=== PATIENT | male | born 1950 | race Caucasian/White ===

== ENCOUNTER 2023-07-26 14:59 | Outpatient (AMB) | payer OTHER, SELFPAY ==
--- NOTE | 2023-07-26 15:16 | MHC.PC.OV ---
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 Accompanied by: Step Child Allergies No Known Allergies Allergy (Verified 07/26/23 15:21) Tobacco use date assessed: 07/26/23 Fall risk assessment: No Falls in past year Last assessed Fall Risk: 07/26/23 Dental Screening Dental Screen Date: 07/26/23 Did you have a dental visit in the last 12 months?: No Did you have a dental problem in the last 6 months where you did not have access to dental care?: No Was dental information given to patient?: Patient has dentist HPI Claims Specialist Chronic Care Follow Up ( DM, Blood Pressure ) HPI Details New patient Prior PCP:? [facility] in [place] Last office visit/CPE: 2016 Acute issue(s): numbness b/l feet. No med for his DM since 2018 A1c today 5.2%. PMHx: DM, L ankle fracture. SurgHx: Teeth Extractions FHx: Mom: COPD, High BS. Dad: Dementia. SocHx: Smokes 1/2 ppd. Started smoking age 21. EtOH 4 times a week; No drugs PFSH Medical History (Updated 07/26/23 @ 16:16 by Percy Davis) High blood pressure Diabetes Surgical History (Updated 07/26/23 @ 15:25 by Ninfa Posada CMA) No pertinent past surgical history Family History (Updated 07/26/23 @ 15:27 by Ninfa Posada CMA) Mother COPD (chronic obstructive pulmonary disease) Cardiovascular disease Father Dementia Sister Mini stroke Social History (Updated 07/26/23 @ 15:32 by Ninfa Posada CMA) Household Members: Friend(s) Housing: House Housing Other:: Patient rents room from a friend. Are you a primary career placement specialist to a significant other at home: No Do you presently have visiting nurse or other home services: No 75 years or older and lives alone: No Alcohol intake: current Comment: 4 times Patient Tobacco Use Status: Current everyday Tobacco user Tobacco use type: Cigar Cigarettes Per Day: 10 e-Cigarette/Vaping Use: Currently Using Substance Use Type: Marijuana Special luc needs: No service: No Current occupational status: retired Cognitive needs: No Hearing needs: No Vision needs: No Questionnaire PHQ-9 Over the last 2 weeks, how often have you been bothered by any of the following problems? 1. Little interest or pleasure in doing things: several days 2. Feeling down, depressed, or hopeless: not at all 3. Trouble falling or staying asleep, or sleeping too much: not at all 4. Feeling tired or having little energy: several days 5. Poor appetite or overeating: not at all 6. Feeling bad about yourself - or that you are a failure or have let yourself or your family down: not at all 7. Trouble concentrating on things, such as reading the newspaper or watching television: not at all 8. Moving or speaking so slowly that other people could have noticed. Or the opposite - being so fidgety or restless that you have been moving around a lot more than usual: not at all 9. Thoughts that you would be better off or of hurting yourself in some way: not at all Total score: 2 Depression Screening Interpretation: Negative Depression Screening Done: Yes Source: Developed by Drs. Marty Garrison, Pati Duckworth, Chema Devi and colleagues, with an educational yvonne from [employer]. Thrive Questionnaire Date Thrive assessed: 07/26/23 I am a: Patient What is your living situation today?: I have a steady place to live Within the past 12 months, did the food you bought not last and you didn't have the money to get more?: Never true Within the past 12 months, did you worry whether your food would run out before you got money to buy more?: Never true Do you have trouble paying for medicines?: No Do you have trouble getting transportation to medical appointments?: No Do you have trouble paying your heating and electricity bill?: No Do you have trouble taking care of your child, family member or friend?: No Do you have trouble with day-to-day activities such as bathing, preparing meals, shopping, managing finances, etc.?: No Are you currently unemployed and looking for a job?: No Are you interested in more education?: No THRIVE Score: 0 AUDIT C Alcohol Use Questionnaire (AUDIT-C) 1. How often do you have a drink containing alcohol?: 4 or more times a week 2. How many drinks containing alcohol do you have on a typical day when you are drinking?: 5 or 6 3. How often do you have six or more drinks on one occasion?: Monthly Total Score: 8 STACEY-7 AMB Questionnaire STACEY-7 Date STACEY - 7 assessed: 07/26/23 Feeling nervous, anxious, or on edge: 0 = Not at all Not being able to stop or control worryin = Not at all Worrying too much about different things: 0 = Not at all Trouble relaxin = Not at all Being so restless that it is hard to sit still: 0 = Not at all Becoming easily annoyed or irritable: 0 = Not at all Feeling afraid as if something awful might happen: 0 = Not at all Total STACEY-7 score (0-4 normal; 5-9 mild; 10-14 moderate; 15-21 severe): 0 Source: Developed by Drs. Marty Garrison, Pati Duckworth, Chema Devi and colleagues, with an educational yvonne from [employer]. Review of Systems Const Denies chills, Denies fatigue, Denies fever(s), Denies headache(s) and Denies weakness ENT Denies dizziness and Denies headache(s) Card Denies chest pain, Denies lightheadedness, Denies dyspnea and Denies other (Palpitations) Resp Denies cough, Denies dyspnea, Denies wheezing and Denies other ( shortness of breath) Musc Denies numbness and Denies tingling Neuro Denies dizziness, Denies headache(s), Denies numbness, Denies tingling, Denies paresthesias and Denies weakness Psych Denies anxiety and Denies depression Endo Denies fatigue Aller/Immun Denies wheezing Physical exam (Primary Care) Vital Signs: Last Vital Signs Pulse 63 07/26/23 15:17 BP 142/84 H 07/26/23 15:17 Pulse Ox 98 07/26/23 15:17 Oxygen Delivery Method Room Air 07/26/23 15:17 BMI result Body Mass Index 37.7 Tobacco/Smoking Status: Tobacco use Status Tobacco use date assessed 07/26/23 07/26/23 15:34 Patient Tobacco Use Status Current everyday Tobacco 07/26/23 15:34 Tobacco use type Cigar 07/26/23 15:34 e-Cigarette/Vaping Use Currently Using 07/26/23 15:34 PHQ-9: PHQ-9 Score PHQ-9: Total score 2 07/26/23 15:42 Depression Screening Interpretation: Negative Thrive Assessment: Date of Thrive Assessment Date Thrive assessed 07/26/23 07/26/23 15:41 Const General: no acute distress and well developed Nutritional Appearance: well nourished Orientation/consciousness: patient oriented x3 HENMT Head: Yes normocephalic and Yes atraumatic Eyes General: appearance normal, both eyes and all related structures Pupils: Equal, round and reactive pupils present EOM: EOMs intact bilaterally Resp Effort & Inspection: normal respiratory effort Auscultation: clear to auscultation bilaterally Cardio Rate: regular rate Rhythm: regular rhythm Heart sounds: S1 normal heart sound present, S2 normal heart sound present, no gallops, no murmurs and no rubs Neuro General: patient oriented x3 and gait normal Cranial nerves: Yes Equal, round and reactive pupils present Extrem Other: Decreased sensation bilateral lower extremities Psych Affect: normal affect Results AMB Hemoglobin A1c AMB Hemoglobin A1c 5.2 % Last Edit by Ninfa Posada CMA on 07/26/23 15:54 Assessment and Plan Assessment & Plan (1) Elevated blood pressure reading without diagnosis of hypertension: Code(s): R03.0 - Elevated blood-pressure reading, without diagnosis of hypertension Plan: Blood?pressure?elevated?today. He?denies?having?ever?been?treated?for?hypertension. We?discussed?that?if?blood?pressures?are?consistently?elevated?we?will?want?to?use?medication?to?control?this Meantime,?encouraged?salt/sodium?reduction?and?weight?loss?and?exercise. (2) Diabetes: Code(s): E11.9 - Type 2 diabetes mellitus without complications Plan: History?of?diabetes?but?his?A1c?is?5.2%?which?is?in?normal?range. Will?continue?to?follow Encouraged?diet,?exercise?and?weight?loss (3) Paresthesia of lower extremity: Code(s): R20.2 - Paresthesia of skin Plan: Significant?paresthesia?and?and?numbness?of?bilateral?feet He?notes?that?this?is?symmetrical?and?has?now?started?in?his?fingers?as?well History?of?diabetes?but?he?notes?that?his?A1cs?have?been?under?6?on?metformin?in?the?past?and?A1c?today?is?5.2%. Will?check?fasting?blood?sugars?well Of?note,?patient?drinks?multiple?alcoholic?drinks?about?4?times?per?week?and?this?may?also?impact?nerve?function. Checking?labs?including?B12,?iron?and?ferritin, thyroid?function He?can?try?some?gabapentin?and?B12?for?now. Will?follow-up?on?lab?work?and?if?no?other?cause?is?found,?will?refer?to?Neurology. Of?note,?patient?did?have?a?right?hand?pill?rolling?tremor?and?he?mentioned?that?his?father?had?dementia,??so?he?might?also?have a?neurodegenerative?process?like?Parkinson's. (4) History of smoking: Code(s): Z87.891 - Personal history of nicotine dependence Plan: He?is?only?smoking?half?a?pack?per?day?now?and?I?encouraged?weaning?and?cessation. Offered?low-dose?CT?scan? - will?order?and?he?will?check?to?see?that?his?insurance?will?cover?this. (5) Numbness of lower extremity: Code(s): R20.0 - Anesthesia of skin Plan: As?above,?patient?has?numbness?of?bilateral?feet?and?ankle?and?has?begun?with?bilateral?fingers?as?well. Checking?labs If?no?clear?cause,?will?refer?to?Neurology (6) Laboratory exam ordered as part of routine general medical examination: Code(s): Z00.00 - Encounter for general adult medical examination without abnormal findings Plan: Check?lab Orders: Orders Complete Blood Count Auto Diff Today Z00.00 - Encounter for general adult medical examination without abnormal findings Prostate Specific Antigen Scr Today Z12.5 - Encounter for screening for malignant neoplasm of prostate Microalbumin, Random (w Creat) Today I10 - Essential (primary) hypertension TSH reflex Free T4 Today Z00.00 - Encounter for general adult medical examination without abnormal findings Vitamin B12 and Folate Today E53.8 - Deficiency of other specified B group vitamins, R20.2 - Paresthesia of skin Ferritin Today R20.2 - Paresthesia of skin AMB Hemoglobin A1c Today Z13.9 - Encounter for screening, unspecified Comprehensive [place]. Panel Fast Today Z00.00 - Encounter for general adult medical examination without abnormal findings Lipid Panel Today Z00.00 - Encounter for general adult medical examination without abnormal findings UA and rflx microscopic Today Z00.00 - Encounter for general adult medical examination without abnormal findings Vitamin B6 Today R20.2 - Paresthesia of skin Magnesium Today R20.2 - Paresthesia of skin IRON PROFILE Today R20.2 - Paresthesia of skin Medications: New gabapentin 300 mg PO BID 30 days 60 caps 2RF mecobalamin (vitamin B12) 1,000 mcg PO DAILY 30 days 30 tabs 3RF Coding Level of Care Code Est Pt Level 3 (06598) Diagnoses Elevated blood pressure reading without diagnosis of hypertension R03.0 Diabetes E11.9 Paresthesia of lower extremity R20.2 History of smoking Z87.891 Numbness of lower extremity R20.0 Laboratory exam ordered as part of routine general medical examination Z00.00
[2023-07-26 15:17] VITALS: BP 142/84; PULSE 63; O2SAT 98; BMI 37.7
== END 2023-07-26 16:14 | disposition home or self-care (01) ==
PROVIDERS: PCP Family Medicine; Visit Provider Family Medicine
DX: R03.0 Elevated blood-pressure reading, without diagnosis of hypertension (principal); E11.9 Type 2 diabetes mellitus without complications; R20.2 Paresthesia of skin; Z87.891 Personal history of nicotine dependence; R20.0 Anesthesia of skin
CPT/HCPCS: 83036; 99213

== ENCOUNTER 2023-11-29 13:44 | Outpatient (AMB) | payer OTHER, SELFPAY ==
[2023-11-29 13:54] VITALS: BP 132/80; PULSE 60; O2SAT 97; BMI 35.4
--- NOTE | 2023-11-29 13:54 | A.OFFPC_ITS ---
Vital Signs 11/29/23 13:54 Height 5 ft 11 in Weight 254 lb BMI 35.4 BP 132/80 Blood Pressure Location Lt brachial Position Sitting Pulse 60 Pulse Source Pulse Oximeter Pulse Oximetry (%) 97 Oxygen Delivery Method Room Air Intake Visit Reasons: Ext exam w/ f/u labs & health maint - see comment Intake Note: Patient is here for extended exam, but was not able to get his blood work done. Patient would like his meds refilled today. Allergies pollen extracts Allergy (Mild, Verified 11/29/23 14:01) Nasal congestion Medication List - Last Reconciled 11/29/23 by Clint Pedraza MD gabapentin 300 mg PO BID 30 days mecobalamin (vitamin B12) 1,000 mcg PO DAILY 30 days Tobacco use date assessed: 07/26/23 Fall risk assessment: 1 Fall in past year Last assessed Fall Risk: 11/29/23 Dental Screening Dental Screen Date: 07/26/23 HPI Ext exam w/ f/u labs & health maint - see comment HPI Details Patient?presents?for?an?extended?exam?with?follow- up?labs?and?health?maintenance A hospital admission in July to August for left femur fracture and left ulnar fracture. No recent labs to review. Pt has complaints of tremors of his hands and feet. He notes tremors of his feet worse than his hands. He is on gabapentin 300mg which he states helps. He notes he has never had a colonoscopy. Has had a cologuard test before. [facility] Medical History High blood pressure Diabetes Surgical History No pertinent past surgical history Family History (Updated 11/29/23 @ 14:12 by Ninfa Posada CMA) Mother COPD (chronic obstructive pulmonary disease) Cardiovascular disease Father Dementia Mental health disorder Sister Mini stroke Social History Household Members: Friend(s) Housing: House Housing Other:: Patient rents room from a friend. Are you a primary career services officer to a significant other at home: No Do you presently have visiting nurse or other home services: No 75 years or older and lives alone: No Alcohol intake: current Comment: 4 times Patient Tobacco Use Status: Current everyday Tobacco user Tobacco use type: Cigar Cigarettes Per Day: 10 e-Cigarette/Vaping Use: Currently Using Substance Use Type: Marijuana Special luc needs: No service: No Current occupational status: retired Cognitive needs: No Hearing needs: No Vision needs: No Questionnaire Thrive Questionnaire Date Thrive assessed: 07/26/23 STACEY-7 AMB Questionnaire STACEY-7 Date STACEY - 7 assessed: 07/26/23 Source: Developed by Drs. Marty Garrison, Pati Duckworth, Chema Devi and colleagues, with an educational yvonne from [employer]. Review of Systems Const Denies chills, Denies fatigue, Denies fever(s), Denies headache(s) and Denies weakness Eyes Denies change in vision ENT Denies dizziness, Denies headache(s), Denies hearing loss, Denies nasal congestion, Denies sinus pain, Denies sinus pressure and Denies sore throat Card Denies chest pain, Denies lightheadedness, Denies dyspnea and Denies other (palpitations) Resp Denies cough, Denies dyspnea and Denies wheezing GI Denies abdominal pain, Denies melena, Denies hematochezia, Denies change in bowel habits, Denies dyspepsia and Denies nausea Denies hematuria and Denies dysuria Musc Denies abnormal gait, Denies myalgias, Denies arthralgias, Denies numbness and Denies tingling Skin/Breast Denies rash, Denies unusual bruising and Denies wounds Neuro Denies abnormal gait, Denies dizziness, Denies headache(s), Denies memory loss, Denies numbness, Denies Sensory deficit (Neuro), Denies tingling, Reports tremor(s) and Denies weakness Psych Denies anxiety, Denies depression and Denies memory loss Endo Denies cold intolerance, Denies fatigue, Denies heat intolerance, Denies polydipsia and Denies polyuria Sebastian/Lymph Denies easy bleeding and Denies easy bruising Aller/Immun Denies wheezing Physical exam (Primary Care) Vital Signs: Last Vital Signs Pulse 60 11/29/23 13:54 BP 132/80 11/29/23 13:54 Pulse Ox 97 11/29/23 13:54 Oxygen Delivery Method Room Air 11/29/23 13:54 BMI result Body Mass Index 35.4 Tobacco/Smoking Status: Tobacco use Status Tobacco use date assessed 07/26/23 11/29/23 13:56 Patient Tobacco Use Status Current everyday Tobacco 11/29/23 13:56 Tobacco use type Cigar 11/29/23 13:56 e-Cigarette/Vaping Use Currently Using 11/29/23 13:56 Thrive Assessment: Date of Thrive Assessment Date Thrive assessed 07/26/23 11/29/23 13:56 Const General: no acute distress, well developed, alert and awake Nutritional Appearance: well nourished Orientation/consciousness: patient oriented x3 HENMT Head: Yes normocephalic and Yes atraumatic Ears: hearing grossly normal bilaterally and TM's normal bilaterally General nose exam: Normal external nose present and Normal nares present Mouth: Normal oral and palatal mucosa present and moist mucous membranes Teeth and gingiva: dentition normal Throat: Yes posterior oropharynx normal Eyes General: appearance normal, both eyes and all related structures Pupils: Equal, round and reactive pupils present and Pupil accommodation reflex normal EOM: EOMs intact bilaterally Neck Neck: Yes normal visual inspection, Yes no lymphadenopathy and Yes trachea midline Thyroid: Thyroid normal Carotids: no bruits Lymphatic: no lymphadenopathy noted Chest Chest palpation & inspection: normal inspection of the chest Resp Effort & Inspection: normal respiratory effort Auscultation: clear to auscultation bilaterally Cardio Rate: regular rate Rhythm: regular rhythm Heart sounds: S1 normal heart sound present, S2 normal heart sound present, no gallops, no murmurs and no rubs Bruits: no abdominal aortic bruits and no carotid bruits GI Palpation (GI): No Abdominal aortic bruit present, Soft to palpation, nontender, No hepatosplenomegaly present and No Rebound tenderness present Auscultation: normal bowel sounds General: Yes no CVA tenderness Back/Spine/Pelvis Back: no CVA tenderness Cervical Spine: cervical ROM normal and No Cervical spine tenderness Thoracic/Lumbar Spine: thoraco-lumbar ROM normal, No pain with thoraco-lumbar ROM, No thoracic spinal tenderness and No lumbar spinal tenderness Skin Lesions: no lesions Rashes: no rashes Trauma: no lacerations or abrasions Wounds: no wounds Nails: normal Neuro General: patient oriented x3 Cranial nerves: Yes Equal, round and reactive pupils present Cognition (Neuro): normal cognition Gait exam (Neuro): Normal gait present Motor exam (neuro): 5/5 motor strength present throughout Sensory Exam: No Sensory deficit (Neuro) Deep tendon reflexes (DTR's): Right patellar reflex intensity grade: 2+ and Left patellar reflex intensity grade: 2+ Extrem General: Yes normal to inspection and No edema Psych Appearance: grossly normal Affect: normal affect Attitude: cooperative Thought process: Normal thought process present Assessment and Plan Assessment & Plan (1) Status post fall: Code(s): Z91.81 - History of falling Plan: S/p?fall?and?fracture?of?ulna?and?femur Now?healed?and?patient?is?walking?with?limp?using?arm?normally. Patient?walked?over?a?mile just?this?weekend. Concerned?that?this?is?likely?secondary?to?some?alcohol?and?missing?some?stairs? when?walking?down?steps. Patient?denies?this Encouraged?moderation?will?drink (2) High blood pressure: Code(s): I10 - Essential (primary) hypertension Plan: Blood?pressure?is?controlled.??Goal?is?less?than?140/90 (3) Screening for colon cancer: Code(s): Z12.11 - Encounter for screening for malignant neoplasm of colon Plan: Patient?agrees?to?Cologuard?test Ordered (4) Tremor: Code(s): R25.1 - Tremor, unspecified Plan: Tremor?and?this?may?be?secondary?to?alcohol?use Had?discussed?referral?to?neurology?with?patient?but?he?says?he?would?not?have?a ?way?to?get?to?the?appointment. Will?monitor (5) Screening for prostate cancer: Code(s): Z12.5 - Encounter for screening for malignant neoplasm of prostate Plan: Check?PSA (6) Adult general medical exam: Code(s): Z00.00 - Encounter for general adult medical examination without abnormal findings Plan: 73-year-old?male?presents?for?extended?exam Orders: Referrals Cologuard Test Z12.11 - Encounter for screening for malignant neoplasm of colon, Z12.12 - Encounter for screening for malignant neoplasm of rectum Medications: New folic acid 0.4 mg PO DAILY 90 days 90 tabs 3RF thiamine HCl (vitamin B1) 500 mg PO DAILY 90 days 90 tabs 3RF Coding Level of Care Code Est Pt Level 4 (61458) Diagnoses Status post fall Z91.81 High blood pressure I10 Screening for colon cancer Z12.11 Tremor R25.1 Screening for prostate cancer Z12.5 Adult general medical exam Z00.00
== END 2023-11-29 16:07 | disposition home or self-care (01) ==
PROVIDERS: PCP Family Medicine; Visit Provider Family Medicine
DX: I10 Essential (primary) hypertension (principal); R25.1 Tremor, unspecified; Z91.81 History of falling; Z12.11 Encounter for screening for malignant neoplasm of colon; Z12.5 Encounter for screening for malignant neoplasm of prostate
CPT/HCPCS: 99214

== ENCOUNTER 2024-01-31 10:58 | Outpatient (AMB) | payer OTHER, SELFPAY ==
--- NOTE | 2024-01-31 11:02 | A.OFFPC_ITS ---
Vital Signs 01/31/24 11:06 01/31/24 11:12 01/31/24 11:19 Height 5 ft 11 in Weight 261 lb 4 oz BMI 36.4 BP 140/78 H 150/70 H 140/78 H Blood Pressure Location Rt brachial Rt brachial Rt brachial Position Sitting Sitting Sitting Respiration 16 Pulse 78 Pulse Source Pulse Oximeter Temp 98 F Temp Source Tympanic Pulse Oximetry (%) 98 Oxygen Delivery Method Room Air Intake Visit Reasons: eye surgery Intake Note: pre op patient states they did not give him a pre op form Allergies pollen extracts Allergy (Mild, Verified 01/31/24 11:05) Nasal congestion Tobacco use date assessed: 07/26/23 Dental Screening Dental Screen Date: 07/26/23 HPI eye surgery HPI Details Patient presents for preoperative clearance prior to R cataract surgery Procedure: R ctaract Date:? 02/03/2024 Surgeon: Chaitanya Ruiz Anesthesia: Local Cardiac Hx: None Pulmonary Hx: None. Smokes 1 pack per week Prior Surgical Complications: None Prior Anesthesia Complications: None Coag issues: None Functional Matthews: Walks 1/2 mile per day PFSH Medical History High blood pressure Diabetes Surgical History No pertinent past surgical history Family History (Updated 11/29/23 @ 14:12 by Ninfa Posada CMA) Mother COPD (chronic obstructive pulmonary disease) Cardiovascular disease Father Dementia Mental health disorder Sister Mini stroke Social History Household Members: Friend(s) Housing: House Housing Other:: Patient rents room from a friend. Are you a primary healthcare market consultant to a significant other at home: No Do you presently have visiting nurse or other home services: No 75 years or older and lives alone: No Alcohol intake: current Comment: 4 times Patient Tobacco Use Status: Current everyday Tobacco user Tobacco use type: Cigar Cigarettes Per Day: 10 e-Cigarette/Vaping Use: Currently Using Substance Use Type: Marijuana Special luc needs: No service: No Current occupational status: retired Cognitive needs: No Hearing needs: No Vision needs: No Questionnaire Thrive Questionnaire Date Thrive assessed: 07/26/23 STACEY-7 AMB Questionnaire STACEY-7 Date STACEY - 7 assessed: 07/26/23 Source: Developed by Drs. Marty Garrison, Pati Duckworth, Chema Devi and colleagues, with an educational yvonne from [employer]. Review of Systems Const Denies chills, Denies fatigue, Denies fever(s), Denies headache(s) and Denies weakness ENT Denies dizziness and Denies headache(s) Card Denies chest pain, Denies lightheadedness, Denies dyspnea and Denies other (Palpitations) Resp Denies cough, Denies dyspnea, Denies wheezing and Denies other ( shortness of breath) Musc Denies numbness and Denies tingling Neuro Denies dizziness, Denies headache(s), Denies numbness, Denies tingling, Denies paresthesias and Denies weakness Psych Denies anxiety and Denies depression Endo Denies fatigue Aller/Immun Denies wheezing Physical exam (Primary Care) Vital Signs: Last Vital Signs Temp 98 F 01/31/24 11:06 Pulse 78 01/31/24 11:06 Resp 16 01/31/24 11:06 BP 140/78 H 01/31/24 11:19 Pulse Ox 98 01/31/24 11:06 Oxygen Delivery Method Room Air 01/31/24 11:06 BMI result Body Mass Index 36.4 Tobacco/Smoking Status: Tobacco use Status Tobacco use date assessed 07/26/23 01/31/24 11:04 Patient Tobacco Use Status Current everyday Tobacco 01/31/24 11:04 Tobacco use type Cigar 01/31/24 11:04 e-Cigarette/Vaping Use Currently Using 01/31/24 11:04 Thrive Assessment: Date of Thrive Assessment Date Thrive assessed 07/26/23 01/31/24 11:04 Const General: no acute distress and well developed Nutritional Appearance: well nourished Orientation/consciousness: patient oriented x3 HENMT Head: Yes normocephalic and Yes atraumatic Eyes General: appearance normal, both eyes and all related structures Pupils: Equal, round and reactive pupils present EOM: EOMs intact bilaterally Resp Effort & Inspection: normal respiratory effort Auscultation: clear to auscultation bilaterally Cardio Rate: regular rate Rhythm: regular rhythm Heart sounds: S1 normal heart sound present, S2 normal heart sound present, no gallops, no murmurs and no rubs Neuro General: patient oriented x3 and gait normal Cranial nerves: Yes Equal, round and reactive pupils present Psych Affect: normal affect Assessment and Plan Assessment & Plan (1) Pre-operative clearance: Code(s): Z01.818 - Encounter for other preprocedural examination Plan: 73-year-old?male?presents?for?preoperative?clearance?prior?to?right?cataract?barnes rgery No?history?of?cardiac?or?pulmonary?disease. Cardiac?and?pulmonary?exams?today?are?within?normal?limits. Patient?does?smoke?about?1?pack?per?week?and?I?advised?cessation No?complications?with?prior?surgeries?or?anesthesia No?coagulopathies Good?functional?reserve Low?risk?patient?for?low?risk?procedure ?No?contraindications?to?proceeding?with?proposed?procedure Medications: Refilled folic acid 0.4 mg PO DAILY 90 days 90 tabs 3RF thiamine HCl (vitamin B1) 500 mg PO DAILY 90 days 90 tabs 3RF Coding Level of Care Code Est Pt Level 3 (73826) Diagnoses Pre-operative clearance Z01.818
[2024-01-31 11:06] VITALS: BP 140/78; PULSE 78; RESP 16; TEMP 36.6; O2SAT 98; BMI 36.4
[2024-01-31 11:12] VITALS: BP 150/70
[2024-01-31 11:19] VITALS: BP 140/78
== END 2024-01-31 11:44 | disposition home or self-care (01) ==
PROVIDERS: PCP Family Medicine; Visit Provider Family Medicine
DX: Z01.818 Encounter for other preprocedural examination (principal)
CPT/HCPCS: 99213

== ENCOUNTER 2024-09-18 08:47 | Outpatient (REF) | payer MEDICARE, SELFPAY ==
[2024-09-18 11:22] LABS: MANUAL DIFF FLAG NO
[2024-09-18 11:29] LABS: Basophils Absolute Auto 0.1 X10*3/uL (0.0-0.2); Eosinophils Absolute Auto 0.1 X10*3/uL (0.0-0.4); Eosinophils Percent Auto 1.8 % (0-4); Hematocrit 43.9 % (42.0-52.0); Hemoglobin 15.7 g/dl (14.0-18.0); Imm Gran Abs Auto 0.02 X10*3/uL (0.00-0.03); Imm Gran Pct Auto 0.3 % (0.0-0.4); Lymphocytes Absolute Auto 3.3 X10*3/uL (1.2-4.9); Lymphocytes Percent Auto 45.3 % (20-40); Mean Corpuscular HGB Conc 35.8 g/dl (31.0-36.0); Mean Corpuscular Hemoglobin 32.7 pg (27.0-33.0); Mean Corpuscular Volume 91.5 fL (80.0-98.0); Mean Platelet Volume 10.3 fL (9.4-12.4); Monocytes Absolute Auto 0.6 X10*3/uL (0.1-1.2); Monocytes Percent Auto 8.7 % (2-11); Neutrophils Absolute Auto 3.1 x10*3/uL (2.0-8.3); Neutrophils Percent Auto 42.9 % (45-73); Platelet Count 358 X10*3/uL (160-400); Red Cell Distribution Width 13.6 % (11.0-16.0); White Blood Count 7.3 X10*3/uL (4.8-10.8)
[2024-09-18 11:43] LABS: Magnesium 2.2 mg/dL (1.6-2.6)
[2024-09-18 14:31] LABS: Anion Gap 13 (12-20)
[2024-09-18 14:37] LABS: Alanine Aminotransferase 47 U/L (0-40); Albumin Level 3.6 g/dL (3.5-5.0); Alkaline Phosphatase 91 U/L (39-117); Aspartate Amino Transferase 46 U/L (5-37); Bilirubin Direct 0.6 mg/dL (0.0-0.5); Bilirubin Total 1.3 mg/dL (0.0-1.0); Blood Urea Nitrogen 13 mg/dL (9-16); Calcium 9.2 mg/dL (8.4-10.2); Carbon Dioxide 23 mmol/L (22-29); Chloride 106 mmol/L (96-108); Estimated Glomerular Filt Rate > 60; Glucose Random 119 mg/dL (60-115); Phosphorus 4.1 mg/dL (2.7-4.5); Sodium 138 mmol/L (135-145)
[2024-09-18 15:14] LABS: Total Protein 7.2 g/dL (6.5-8.0)
== END 2024-09-18 08:48 | disposition home or self-care (01) ==
LOC: HO.WFDLDS 08:47
PROVIDERS: Visit Provider Internal Medicine Cardiovascular Disease
DX: I50.20 Unspecified systolic (congestive) heart failure (principal)
CPT/HCPCS: 36415; 80048; 80076; 83735; 84100; 85025

== ENCOUNTER 2024-09-21 11:09 | Outpatient (AMB) | payer MEDICARE, SELFPAY ==
--- NOTE | 2024-09-21 11:15 | MHC.PC.OV ---
Vital Signs 09/21/24 11:28 Height 5 ft 11 in Weight 262 lb BMI 36.5 BP 120/68 Blood Pressure Location Lt brachial Position Sitting Pulse Source Pulse Oximeter Temp 97.4 F Temp Source Oral Pulse Oximetry (%) 98 Oxygen Delivery Method Room Air Intake Visit Reasons: Discharge Follow-Up [facility] Intake Note: patient is scheduled for tcm Pilates Instructor Required: No Allergies pollen extracts Allergy (Mild, Verified 09/21/24 11:25) Nasal congestion Medication List - Last Reconciled 09/21/24 by Clint Pedraza MD apixaban (Eliquis) 5 mg PO BID colchicine 0.6 mg PO DAILY dapagliflozin propanediol 10 mg PO DAILY folic acid 0.4 mg PO DAILY 90 days folic acid 1 mg PO DAILY furosemide 20 mg PO BID gabapentin 300 mg PO BID 30 days losartan 25 mg PO DAILY mecobalamin (vitamin B12) 1,000 mcg PO DAILY 30 days metoprolol succinate ER 50 mg PO DAILY spironolactone 25 mg PO DAILY thiamine HCl (vitamin B1) 500 mg PO DAILY 90 days thiamine HCl (vitamin B1) 100 mg PO BID Tobacco use date assessed: 07/26/23 Dental Screening Dental Screen Date: 07/26/23 HPI Discharge Follow-Up [facility]) HPI Details 74 y/o male presents for a discharge f/u [facility] Had presented with complaints of shortness of breath/dyspnea on exertion, orthopnea as well as LE edema. EKG with LBBB and new onset AFib with RVR. Was noted to be in fluid overload and chest imaging with small L sided pleural effusion as well as small pericardial effusion. Pt had an echocardiogram which revealed a low normal LVEF (40 to 45%), LVH, mild global hypokinesis, moderately dilated L atrium, mild to moderate pulmonary hypertension and small pericardial effusion. Was discharged on Eliquis 5mg, Farxiga, Lasix, spironolactone, losartan and toprol 50mg daily. Pt had still remained in AFib. Workup revealed pericarditis, CHF. TCM TCM Information Date of Discharge 08/10/24 Discharged From Other Interactive Contact Date (Reference documentation from this date) 09/21/24 [facility] Medical History High blood pressure Diabetes Surgical History No pertinent past surgical history Family History (Updated 11/29/23 @ 14:12 by Ninfa Posada CMA) Mother COPD (chronic obstructive pulmonary disease) Cardiovascular disease Father Dementia Mental health disorder Sister Mini stroke Social History Household Members: Friend(s) Housing: House Housing Other:: Patient rents room from a friend. Are you a primary before and after school daycare worker to a significant other at home: No Do you presently have visiting nurse or other home services: No 75 years or older and lives alone: No Alcohol intake: current Comment: 4 times Patient Tobacco Use Status: Current everyday Tobacco user Tobacco use type: Cigar Cigarettes Per Day: 10 e-Cigarette/Vaping Use: Currently Using Substance Use Type: Marijuana Special luc needs: No service: No Current occupational status: retired Cognitive needs: No Hearing needs: No Vision needs: No Questionnaire PHQ-9 Over the last 2 weeks, how often have you been bothered by any of the following problems? 1. Little interest or pleasure in doing things: not at all 2. Feeling down, depressed, or hopeless: not at all 3. Trouble falling or staying asleep, or sleeping too much: not at all 4. Feeling tired or having little energy: not at all 5. Poor appetite or overeating: not at all 6. Feeling bad about yourself - or that you are a failure or have let yourself or your family down: not at all 7. Trouble concentrating on things, such as reading the newspaper or watching television: not at all 8. Moving or speaking so slowly that other people could have noticed. Or the opposite - being so fidgety or restless that you have been moving around a lot more than usual: not at all 9. Thoughts that you would be better off or of hurting yourself in some way: not at all Total score: 0 Source: Developed by Drs. Marty Garrison, Pati Duckworth, Chema Devi and colleagues, with an educational yvonne from [employer]. Thrive Questionnaire Date Thrive assessed: 07/26/23 I am a: Patient What is your living situation today?: I have a steady place to live Within the past 12 months, did the food you bought not last and you didn't have the money to get more?: Never true Within the past 12 months, did you worry whether your food would run out before you got money to buy more?: Never true Do you have trouble paying for medicines?: Yes Do you have trouble getting transportation to medical appointments?: Yes Do you have trouble paying your heating and electricity bill?: No Do you have trouble taking care of your child, family member or friend?: No Do you have trouble with day-to-day activities such as bathing, preparing meals, shopping, managing finances, etc.?: No Are you currently unemployed and looking for a job?: No Are you interested in more education?: No Please select the resources that you would like help with: Transportation Currently or been in a relationship where the following occur: No concerns reported THRIVE Score: 1 AUDIT C Alcohol Use Questionnaire (AUDIT-C) 1. How often do you have a drink containing alcohol?: 2-3 times a week 2. How many drinks containing alcohol do you have on a typical day when you are drinking?: 3 or 4 3. How often do you have six or more drinks on one occasion?: Monthly Total Score: 6 STACEY-7 AMB Questionnaire STACEY-7 Date STACEY - 7 assessed: 07/26/23 Feeling nervous, anxious, or on edge: 0 = Not at all Not being able to stop or control worryin = Not at all Worrying too much about different things: 0 = Not at all Trouble relaxin = Not at all Being so restless that it is hard to sit still: 0 = Not at all Becoming easily annoyed or irritable: 0 = Not at all Feeling afraid as if something awful might happen: 0 = Not at all Total STCAEY-7 score (0-4 normal; 5-9 mild; 10-14 moderate; 15-21 severe): 0 Source: Developed by Drs. Marty Garrison, Pati Duckworth, Chema Devi and colleagues, with an educational yvonne from [employer]. Review of Systems Const Denies chills, Denies fatigue, Denies fever(s), Denies headache(s) and Denies weakness ENT Denies dizziness and Denies headache(s) Card Denies chest pain, Denies lightheadedness, Denies dyspnea and Denies other (Palpitations) Resp Denies cough, Denies dyspnea, Denies wheezing and Denies other ( shortness of breath) Musc Denies numbness and Denies tingling Neuro Denies dizziness, Denies headache(s), Denies numbness, Denies tingling, Denies paresthesias and Denies weakness Psych Denies anxiety and Denies depression Endo Denies fatigue Aller/Immun Denies wheezing Physical exam (Primary Care) Vital Signs: Last Vital Signs Temp 97.4 F 09/21/24 11:28 BP 120/68 09/21/24 11:28 Pulse Ox 98 09/21/24 11:28 Oxygen Delivery Method Room Air 09/21/24 11:28 BMI result Body Mass Index 36.5 Tobacco/Smoking Status: Tobacco use Status Tobacco use date assessed 07/26/23 09/21/24 11:18 Patient Tobacco Use Status Current everyday Tobacco 09/21/24 11:18 Tobacco use type Cigar 09/21/24 11:18 e-Cigarette/Vaping Use Currently Using 09/21/24 11:18 PHQ-9: PHQ-9 Score PHQ-9: Total score 0 09/21/24 11:31 Thrive Assessment: Date of Thrive Assessment Date Thrive assessed 07/26/23 09/21/24 11:18 Currently or been in a relationship where the following occur: No concerns reported Const General: no acute distress and well developed Nutritional Appearance: well nourished Orientation/consciousness: patient oriented x3 HENMT Head: Yes normocephalic and Yes atraumatic Eyes General: appearance normal, both eyes and all related structures Pupils: Equal, round and reactive pupils present EOM: EOMs intact bilaterally Resp Effort & Inspection: normal respiratory effort Auscultation: clear to auscultation bilaterally Cardio Rate: regular rate Rhythm: regular rhythm Heart sounds: S1 normal heart sound present, S2 normal heart sound present, no gallops, no murmurs and no rubs Neuro General: patient oriented x3 and gait normal Cranial nerves: Yes Equal, round and reactive pupils present Psych Affect: normal affect Coding Level of Care Code TCM High MDM <= 14 days Diagnoses Pericarditis I31.9 Afib I48.91 CHF (congestive heart failure) I50.9 SOB (shortness of breath) R06.02 Sleep apnea G47.30 COPD (chronic obstructive pulmonary disease) J44.9 Assessment & Plan Assessment & Plan (1) Pericarditis: Code(s): I31.9 - Disease of pericardium, unspecified Category: Medical (2) Afib: Code(s): I48.91 - Unspecified atrial fibrillation Category: Medical (3) CHF (congestive heart failure): Code(s): I50.9 - Heart failure, unspecified Category: Medical (4) SOB (shortness of breath): Code(s): R06.02 - Shortness of breath Category: Medical (5) Sleep apnea: Code(s): G47.30 - Sleep apnea, unspecified Category: Medical (6) COPD (chronic obstructive pulmonary disease): Code(s): J44.9 - Chronic obstructive pulmonary disease, unspecified Category: Medical Plan Hospital?discharge?follow-up?for?patient?who?presented?with?worsening?shortness?of?breath?and?orthopnea?as?well?as?some?chest?pressure. Workup?revealed?pericarditis,?atrial?fibrillation?and?congestive?heart?failure. He?was?given?colchicine?for?pericarditis.??He?is?on?Eliquis?as?well?as?Toprol?for?atrial?fibrillation?and?he?is?losartan?for?blood?pressure.??Is?also?on?furosemide?for?volume?overload/congestion. Patient?is?breathing?easily?today. He?is?still?in?an?irregularly?irregular?rhythm. Lungs?are?clear?to?auscultation?bilaterally He?was advised?to?make?a?follow-up?appointment?with?Dr. Langford. ?I?have?made?a?referral.? Continue?Eliquis,?Toprol,?losartan,?furosemide?and?colchicine. Will?likely?require?colchicine?3-6 mos. Patient?was?also?found?to?have?COPD?and?I?have?referred?him?to?Pulmonary?Medicine. Also?sleep?apnea?and?he?is?referred?to?Sleep?Medicine Lastly,?we?discussed?that alcohol?abuse?can?worsen?pericarditis and?atrial?fibrillation.??He?is?working?on?weaning. I?let?him?know?that?he?can?discuss?this?with?me?at?her?next?visit?if?he?wants?additional?help?with?weaning?and?cessation. Orders: Orders TSH reflex Free T4 Today R06.02 - Shortness of breath, Z00.00 - Encounter for general adult medical examination without abnormal findings Complete Blood Count Auto Diff Today R06.02 - Shortness of breath, Z00.00 - Encounter for general adult medical examination without abnormal findings B Type Natriuretic Peptide Today I50.9 - Heart failure, unspecified, R06.02 - Shortness of breath Comprehensive [place]. Panel Fast Today R06.02 - Shortness of breath, Z00.00 - Encounter for general adult medical examination without abnormal findings UA CC w/rflx Micro + Cult Today R06.02 - Shortness of breath, Z00.00 - Encounter for general adult medical examination without abnormal findings Referrals Sleep Medicine Referral G47.30 - Sleep apnea, unspecified Cardiology Referral I10 - Essential (primary) hypertension, I31.9 - Disease of pericardium, unspecified, I48.91 - Unspecified atrial fibrillation, I50.9 - Heart failure, unspecified Pulmonology Referral J44.9 - Chronic obstructive pulmonary disease, unspecified, R06.02 - Shortness of breath
[2024-09-21 11:28] VITALS: BP 120/68; TEMP 36.3; O2SAT 98; BMI 36.5
== END 2024-09-21 12:55 | disposition home or self-care (01) ==
LOC: HO.HMCFM 11:10
PROVIDERS: PCP Family Medicine; Visit Provider Family Medicine
DX: I48.91 Unspecified atrial fibrillation (principal); I50.9 Heart failure, unspecified; J44.9 Chronic obstructive pulmonary disease, unspecified; I31.9 Disease of pericardium, unspecified; R06.02 Shortness of breath; G47.30 Sleep apnea, unspecified

== ENCOUNTER → 2024-09-21 11:09 | Outpatient (BNVA) | payer MEDICARE, SELFPAY | PROVIDERS: PCP Family Medicine; Visit Provider Family Medicine | DX: I31.9 Disease of pericardium, unspecified (principal); I48.91 Unspecified atrial fibrillation; I50.9 Heart failure, unspecified; R06.02 Shortness of breath; G47.30 Sleep apnea, unspecified; J44.9 Chronic obstructive pulmonary disease, unspecified | CPT/HCPCS: 99212 ==

== ENCOUNTER 2024-11-29 10:27 | Outpatient (AMB) | payer MEDICARE, SELFPAY ==
[2024-11-29 10:28] VITALS: BP 134/80; PULSE 86; O2SAT 99; BMI 35.4
--- NOTE | 2024-11-29 10:28 | A.OFFVIS_ITS ---
Vital Signs 11/29/24 10:28 Height 5 ft 11 in Weight 253 lb 8 oz BMI 35.4 BP 134/80 Blood Pressure Location Rt brachial Position Sitting Pulse 86 Pulse Source Pulse Oximeter Pulse Oximetry (%) 99 Oxygen Delivery Method Room Air Intake Visit Reasons: COPD/Shortness of Breath Allergies pollen extracts Allergy (Mild, Verified 11/29/24 10:32) Nasal congestion HPI HPI COPD/Shortness of Breath: Details: Ricardo is a pleasant 74-year-old male, current minimal smoker with 30+ pack- year history, with underlying COPD, atrial fibrillation on Eliquis and congestive heart failure. He was referred by PCP for pulmonary evaluation for ongoing dyspnea. He was hospitalized in August under [facility] care, admitted due to new onset atrial fibrillation, CHF, early COPD signs and possible pulmonary hypertension. His inpatient period was marked by fluid retention, in addition to pericardial effusion and pleural effusion addressed through diuretics, now maintained on Lasix that led to notable weight loss. At this time he denies any respiratory symptoms and has been compliant with new cardiac medication regimen. He denies any orthopnea or bilateral lower extremity edema. He has since been evaluated by Cardiology 3 [facility] and will be transitioning his care to [facility], has upcoming appointment next month in addition to repeat echo to assess heart function as well as pulmonary pressures. Despite past indications of early COPD, he recollects the absence of any formal breathing test, such as pulmonary function testing. He denies frequent respiratory infections and has taken no respiratory medications in recent times, mentioning a recent prescription of albuterol MDI which he rarely uses. Denies prior history of asthma. He endorses mild seasonal allergies. He denies any occupational exposures. He reports mother, smoker, with history of COPD, otherwise denies any pertinent family history. Since his admission in October he has significantly minimized smoking, previously 3/4 of a pack per day now to a few cigarettes per day. [facility] Medical History High blood pressure Diabetes Surgical History No pertinent past surgical history Family History (Updated 11/29/23 @ 14:12 by Ninfa Posada CMA) Mother COPD (chronic obstructive pulmonary disease) Cardiovascular disease Father Dementia Mental health disorder Sister Mini stroke Social History (Updated 11/29/24 @ 10:32 by Svetlana Summers CMA) Household Members: Friend(s) Housing: House Housing Other:: Patient rents room from a friend. Are you a primary caregiver assisted living to a significant other at home: No Do you presently have visiting nurse or other home services: No 75 years or older and lives alone: No Alcohol intake: current Comment: 4 times Patient Tobacco Use Status: Current everyday Tobacco user Tobacco use type: Cigarette and Cigar Cigarettes Per Day: 2 e-Cigarette/Vaping Use: Currently Using Substance Use Type: Marijuana Special luc needs: No service: No Current occupational status: retired Cognitive needs: No Hearing needs: No Vision needs: No Review of Systems Const Denies chills, Denies excessive sweating, Denies fever(s), Denies headache(s) and Denies night sweats Eyes Denies dry eyes, Denies irritation and Denies itchy eyes ENT Reports Normal hearing present, Denies headache(s), Denies nasal congestion, Denies nasal discharge, Denies post nasal drip and Denies sore throat Card Denies chest pain, Denies chest pain at rest, Denies chest pain with activity, Denies claudication, Denies leg edema, Denies dyspnea, Denies dyspnea on exertion, Denies orthopnea and Denies paroxysmal nocturnal dyspnea Resp Denies chest congestion, Denies cough, Denies excessive phlegm production, Denies pain on inspiration, Denies pain with cough, Denies dyspnea, Denies dyspnea on exertion, Denies stridor and Denies wheezing Musc Denies myalgias Neuro Reports Normal hearing present and Denies headache(s) Endo Denies excessive sweating Sebastian/Lymph Denies lymphadenopathy Aller/Immun Denies itchy eyes, Denies seasonal rhinorrhea and Denies wheezing Physical Exam Vital Signs: Last Vital Signs Pulse 86 11/29/24 10:28 BP 134/80 11/29/24 10:28 Pulse Ox 99 11/29/24 10:28 Oxygen Delivery Method Room Air 11/29/24 10:28 BMI result Body Mass Index 35.4 Const General: cooperative, healthy appearing, comfortable, no acute distress, well developed and alert Nutritional Appearance: obese Orientation/consciousness: patient oriented x3 Limitations: no limitations HEENT Head: Yes normal to inspection, Yes normocephalic and Yes atraumatic Ears: hearing grossly normal bilaterally and external ears normal Eyes General: appearance normal, both eyes and all related structures Eyelids: Yes eyelids normal Sclerae: sclerae normal EOM: EOMs intact bilaterally Neck Neck: Yes normal visual inspection and Yes no lymphadenopathy Lymphatic: no lymphadenopathy noted Chest Chest palpation & inspection: normal inspection of the chest Resp Effort & Inspection: normal respiratory effort, able to speak in complete sentences, no audible wheezes, no cough, no stridor, not tachypneic, no tripod positioning and no use of accessory muscles Auscultation: diminished lung sounds Cardio Jugular venous distension: no JVD Rate: regular rate Rhythm: regular rhythm Skin Other: warm, dry General skin exam: no rashes or lesions noted Neuro General: patient oriented x3 Cranial nerves: Yes Normal hearing present Cognition (Neuro): normal cognition Gait exam (Neuro): Normal gait present Extrem General: Yes normal to inspection, Yes capillary refill normal, Yes no clubbing, cyanosis or edema and Yes no pedal edema Psych Appearance: grossly normal and well kempt Speech and movement: Normal speech and movement present and Clear speech present Affect: normal affect Attitude: cooperative Thought process: Normal thought process present Thought content: Normal thought content present Insight: Good insight present (Psych) Judgement: Good judgement present (Psych) Assessment & Plan Assessment & Plan (1) COPD (chronic obstructive pulmonary disease): Code(s): J44.9 - Chronic obstructive pulmonary disease, unspecified Category: Medical (2) Nicotine dependence, cigarettes, uncomplicated: Code(s): F17.210 - Nicotine dependence, cigarettes, uncomplicated Category: Medical Plan Ricardo presents for pulmonary evaluation for ongoing dyspnea, with prior history of COPD and continues to smoke. At this time he reports resolution of dyspnea after initiation of cardiac regimen however there may be a pulmonary contribution given smoking history. Will send for PFT to assess severity of obstructive defect. Discussed smoking cessation. Will also send for chest CT to assess for resolution of pleural effusions. We did discuss lung screening given smoking history however he would like to hold off at this time. He has upcoming echo scheduled through Cardiology and will be following up with the [facility] electric meter technician, will be reviewing repeat echo to assess pulmonary pressures as previously noted moderate pulmonary hypertension on echo from August 2024. All questions were answered and patient is in agreement of plan. Will follow-up to review results or sooner if needed. Orders: Orders PFT pulmonary function test Today J44.9 - Chronic obstructive pulmonary disease, unspecified CT chest wo IV con Today F17.210 - Nicotine dependence, cigarettes, uncomplicated, J90 - Pleural effusion, not elsewhere classified Coding Level of Care Code New Pt Level 4 (10169) Diagnoses COPD (chronic obstructive pulmonary disease) J44.9 Nicotine dependence, cigarettes, uncomplicated F17.210
== END 2024-11-29 11:02 | disposition home or self-care (01) ==
LOC: HO.HPSW 10:28
PROVIDERS: PCP Family Medicine; Referring Provider Family Medicine; Visit Provider Nurse Practitioner Family
DX: J44.9 Chronic obstructive pulmonary disease, unspecified (principal); F17.210 Nicotine dependence, cigarettes, uncomplicated
CPT/HCPCS: 99204

== ENCOUNTER → 2024-11-29 10:27 | Outpatient (BNVA) | payer MEDICARE, SELFPAY | PROVIDERS: PCP Family Medicine; Referring Provider Family Medicine; Visit Provider Nurse Practitioner Family | DX: J44.9 Chronic obstructive pulmonary disease, unspecified (principal); R06.00 Dyspnea, unspecified; F17.210 Nicotine dependence, cigarettes, uncomplicated | CPT/HCPCS: 99202 ==

== ENCOUNTER 2025-03-09 10:43 | Outpatient (AMB) | payer MEDICARE, SELFPAY ==
--- NOTE | 2025-03-09 10:50 | A.OFFPC_ITS ---
Vital Signs 03/09/25 10:52 Weight 263 lb 6 oz BP 114/66 Blood Pressure Location Rt brachial Position Sitting Respiration 16 Pulse 88 Pulse Source Pulse Oximeter Temp 97.6 F Pulse Oximetry (%) 97 Oxygen Delivery Method Room Air Intake Visit Reasons: Discharge f/u /acute on chronic CHF -rescheduled Intake Note: Hospital follow up. Currently wearing a heart monitor until 03/13/25 [employer] Consultant Required: No Allergies pollen extracts Allergy (Mild, Verified 03/09/25 10:52) Nasal congestion Tobacco use date assessed: 03/09/25 Fall risk assessment: 2 + Falls in past year Last assessed Fall Risk: 03/09/25 Dental Screening Dental Screen Date: 07/26/23 HPI Discharge f/u /acute on chronic CHF -rescheduled HPI Details Pt presents to f/u hospital visit. Patient went to the emergency department 02/26 after witnessed syncopal episode. At the ED he was noted to be hypotensive. Pro BNP was around 2000 and blood alcohol level was 109. He was given IV boluses of fluid with Levophed. Blood pressure improved and Levophed was discontinued and did not require further critical care management. He was admitted to [facility]. Patient had been sitting with his friends and became unresponsive. EMS was called and by the time they had arrived patient was awake and only mildly confused, briefly. Over the course of his hospital stay, he was given about 2 L of fluid. Lab work revealed JENSEN. His home Lasix, losartan and Aldactone were placed on hold. He did have a few episodes of AFib with RVR during physical activity such as going to the bathroom as well as a 3.2nd pause. His case was discussed with Cardiology, Dr. Langford. He was discharged on a monitor. Reports ongoing hearing loss, R ear. Has an appt. with surface mount technology operator Wednesday. HPI Comments History of Present Illness Details Documentation assistance for Clint Pedraza MD, was provided by Percy Davis, Underwater Photographer on 03/09/2025 at 11:49 AM DELMER. I, Dr. Pedraza, have read, observed, and verified documentation. [facility] Medical History High blood pressure Diabetes Surgical History No pertinent past surgical history Family History (Updated 11/29/23 @ 14:12 by Ninfa Posada CMA) Mother COPD (chronic obstructive pulmonary disease) Cardiovascular disease Father Dementia Mental health disorder Sister Mini stroke Social History (Updated 03/09/25 @ 10:56 by Lissette Muhammad CMA) Household Members: Friend(s) Housing: House Housing Other:: Patient rents room from a friend. Are you a primary career and technology education teacher to a significant other at home: No Do you presently have visiting nurse or other home services: No 75 years or older and lives alone: No Alcohol intake: former Year quit: 2024 Comment: 4 times Patient Tobacco Use Status: Former Tobacco user (quit 2 months ago) Tobacco use type: Cigarette and Cigar Cigarettes Per Day: 2 Years Smoked: 50 e-Cigarette/Vaping Use: Currently Using Substance Use Type: Former Substance User and Marijuana Special luc needs: No service: No Current occupational status: retired Cognitive needs: No Hearing needs: No Vision needs: No Questionnaire Thrive Questionnaire Date Thrive assessed: 09/21/24 I am a: Patient What is your living situation today?: I have a steady place to live Within the past 12 months, did the food you bought not last and you didn't have the money to get more?: Never true Within the past 12 months, did you worry whether your food would run out before you got money to buy more?: Never true Do you have trouble paying for medicines?: Yes Do you have trouble getting transportation to medical appointments?: Yes Do you have trouble paying your heating and electricity bill?: No Do you have trouble taking care of your child, family member or friend?: No Do you have trouble with day-to-day activities such as bathing, preparing meals, shopping, managing finances, etc.?: No Are you currently unemployed and looking for a job?: No Are you interested in more education?: No Please select the resources that you would like help with: Transportation Currently or been in a relationship where the following occur: No concerns reported THRIVE Score: 1 AUDIT C Alcohol Use Questionnaire (AUDIT-C) 1. How often do you have a drink containing alcohol?: Never (quit 02/26/2025) 3. How often do you have six or more drinks on one occasion?: Never Total Score: 0 STACEY-7 AMB Questionnaire STACEY-7 Date STACEY - 7 assessed: 07/26/23 Source: Developed by Drs. Marty Garrison, Pati Duckworth, Chema Devi and colleagues, with an educational yvonne from [employer]. Physical exam (Primary Care) Vital Signs: Last Vital Signs Temp 97.6 F 03/09/25 10:52 Pulse 88 03/09/25 10:52 Resp 16 03/09/25 10:52 BP 114/66 03/09/25 10:52 Pulse Ox 97 03/09/25 10:52 Oxygen Delivery Method Room Air 03/09/25 10:52 Tobacco/Smoking Status: Tobacco use Status Tobacco use date assessed 03/09/25 03/09/25 11:00 Patient Tobacco Use Status Former Tobacco user (quit 2 03/09/25 11:00 months ago) Tobacco use type Cigarette,Cigar 03/09/25 11:00 e-Cigarette/Vaping Use Currently Using 03/09/25 11:00 Thrive Assessment: Date of Thrive Assessment Date Thrive assessed 09/21/24 03/09/25 11:00 Currently or been in a relationship where the following occur: No concerns reported Coding Level of Care Code TCM High MDM <= 14 days Diagnoses Syncope R55 High blood pressure I10 CHF (congestive heart failure) I50.9 Afib I48.91 Hearing loss H91.90 Assessment & Plan Assessment & Plan (1) Syncope: Code(s): R55 - Syncope and collapse Category: Medical (2) High blood pressure: Code(s): I10 - Essential (primary) hypertension Category: Medical (3) CHF (congestive heart failure): Code(s): I50.9 - Heart failure, unspecified Category: Medical (4) Afib: Code(s): I48.91 - Unspecified atrial fibrillation Category: Medical (5) Hearing loss: Code(s): H91.90 - Unspecified hearing loss, unspecified ear Category: Medical Plan Patient went to the emergency department 9:15 after witnessed syncopal episode. At the ED he was noted to be hypotensive. Pro BNP was around 2000 and blood alcohol level was 109. He was given IV boluses of fluid with Levophed. Blood pressure improved and Levophed was discontinued and did not require further critical care management. He was admitted to [facility]. Patient had been sitting with his friends and became unresponsive. EMS was called and by the time they had arrived patient was awake and only mildly confused, briefly. Over the course of his hospital stay, he was given about 2 L of fluid. Lab work r evealed JENSEN. His home Lasix, losartan and Aldactone were placed on hold. He did have a few episodes of AFib with RVR during physical activity such as going to the bathroom as well as a 3.2nd pause. His case was discussed with Cardiology, Dr. Langford. He was discharged on a monitor. Should have close follow-up with Cardiology. Blood pressure 114/66 is good Will check renal function labs and electrolytes such as potassium and sodium Will check pro BNP Encouraged alcohol weaning and cessation - patient says he has already completely stopped since the hospital visit. Has follow-up with Dr. Langford - wearing Holter monitor currently and will review with import manager at that appointment. Not currently taking his spironolactone - blood pressure is good today. I did not restart this. He will discuss with Cardiology. Patient also has complaints of vertigo. Dizziness when he turns his head. He had orthostatics done at the hospital and these were negative. He has an upcoming appointment with audiology. May need referral to ENT subsequently. Orders: Orders Comprehensive Met. Panel Today I50.9 - Heart failure, unspecified Complete Blood Count Auto Diff Today I50.9 - Heart failure, unspecified, Z00.00 - Encounter for general adult medical examination without abnormal findings UA CC w/rflx Micro + Cult Today I50.9 - Heart failure, unspecified, Z00.00 - Encounter for general adult medical examination without abnormal findings NT Pro B Type Natriuretic Pept Today I50.9 - Heart failure, unspecified
[2025-03-09 10:52] VITALS: BP 114/66; PULSE 88; RESP 16; TEMP 36.4; O2SAT 97
--- OUTSIDE RECORDS SUMMARY | 2025-03-09 12:19 | XMS_ITS | Clinical Summary ---
Author Organization [facility] Address [address] [place] [id number] Phone Care Team Providers Care Rn Review Name Role Phone Unavailable Primary Care Provider Unavailabl e Social History Tobacco Use Types Packs/Day Years Used Date Smoking Tobacco: Never Assessed Education Answer Date Recorded Are you interested in more education? Not on demetrice e 08/18/2023 Are you concerned about learning? Not on file 08/18/2023 No 08/18/2023 No 08/18/2023 Digital Access Answer Date Recorded No 08/18/2023 No 08/18/2023 Reliable internet access at home? Not on file 08/18/2023 Device with a working camera? Not on file Sex and Gender Information Value Date Recorded Sex Assigned at Not on file Legal Sex Male 11:49 AM EST Gender Identity Not on file Sexual Orientation Not on file Plan of Treatment Not on file Medical Devices Not on file Additional Source Comments The information contained in this document represents components of the legal health record. It is not the complete legal health record.[facility]
== END 2025-03-09 11:51 | disposition home or self-care (01) ==
LOC: HO.HMCFM 10:44
PROVIDERS: PCP Family Medicine; Visit Provider Family Medicine
DX: R55 Syncope and collapse (principal); I50.9 Heart failure, unspecified; I48.91 Unspecified atrial fibrillation; I10 Essential (primary) hypertension; H91.90 Unspecified hearing loss, unspecified ear

== ENCOUNTER → 2025-03-09 10:43 | Outpatient (BNVA) | payer MEDICARE, SELFPAY | PROVIDERS: PCP Family Medicine; Visit Provider Family Medicine | DX: I11.0 Hypertensive heart disease with heart failure (principal); I50.9 Heart failure, unspecified; E11.9 Type 2 diabetes mellitus without complications; R55 Syncope and collapse; I48.91 Unspecified atrial fibrillation | CPT/HCPCS: 99212 ==

== ENCOUNTER 2025-04-05 08:43 | Outpatient (AMB) | payer MEDICARE, SELFPAY ==
--- OUTSIDE RECORDS SUMMARY | 2025-04-05 09:20 | XMS_ITS | Clinical Summary ---
Author Organization [facility] Address [address] [place] [id number] Phone Care Team Providers Care Fryline Attendant Name Role Phone Unavailable Primary Care Provider [...] It is not the complete legal health record.[facility]
--- NOTE | 2025-04-05 09:36 | A.OFFPC_ITS ---
Vital Signs 04/05/25 09:45 Height 5 ft 11 in Weight 261 lb 8 oz BMI 36.5 BP 120/60 Blood Pressure Location Rt brachial Position Sitting Respiration 18 Pulse 74 Pulse Source Pulse Oximeter Temp 97.4 F Temp Source Oral Pulse Oximetry (%) 96 Oxygen Delivery Method Room Air Intake Visit Reasons: f/u blood pressure, labs Intake Note: patient is scheduled to follow up with pcp for b/p check labs were not completed in time for visit. patient would also like an ENT referral for rapid hearing lo ss in his right ear since december. Fingernail Sculptor Required: No Allergies pollen extracts Allergy (Mild, Verified 04/05/25 09:39) Nasal congestion Medication List - Last Reconciled 04/05/25 by Clint Pedraza MD apixaban (Eliquis) 5 mg PO BID 90 days furosemide (Lasix) 20 mg PO DAILY losartan 25 mg PO DAILY 90 days metoprolol succinate ER 50 mg PO DAILY 90 days spironolactone 12.5 mg PO DAILY thiamine HCl (vitamin B1) 100 mg PO BID 90 days Tobacco use date assessed: 03/09/25 Dental Screening Dental Screen Date: 07/26/23 HPI f/u blood pressure, labs HPI Details 74 y/o male presents to f/u blood pressu re, chronic conditions. 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 BNP was greater than 2000 and recent hospital visit and I have ordered a repeat of this. He has gotten his labs drawn today. Results pending Blood pressure today 120/60, 74p. Pt reports he feels breathing is fine today. Reports R sided hearing loss, vertigo. HPI Comments History of Present Illness Details Documentation assistance for Clint Pedraza MD, was provided by Percy Davis, Invasive Cardiovascular Technologist on 04/05/2025 at 10:01 AM EST. I, Dr. Pedraza, have read, observed, and verified documentation. [facility] Medical History High blood pressure Diabetes Surgical History No pertinent past surgical history Family History (Updated 11/29/23 @ 14:12 by Ninfa Posada [facility]) Mother COPD (chronic obstructive pulmonary disease) Cardiovascular disease Father Dementia Mental health disorder Sister Mini stroke Social History (Updated 03/09/25 @ 10:56 by Lissette Muhammad [facility]) Household Members: Friend(s) Housing: House Housing Other:: Patient rents room from a friend. Are you a primary healthcare consultant to a significant other at home: No Do you presently have visiting nurse or other home services: No 75 years or older and lives alone: No Alcohol intake: former Year quit: 2024 Comment: 4 times Patient Tobacco Use Status: Former Tobacco user (quit 2 months ago) Tobacco use type: Cigarette and Cigar Cigarettes Per Day: 2 Years Smoked: 50 e-Cigarette/Vaping Use: Currently Using Substance Use Type: Former Substance User and Marijuana Special luc needs: No service: No Current occupational status: retired Cognitive needs: No Hearing needs: No Vision needs: No Questionnaire Thrive Questionnaire Date Thrive assessed: 09/21/24 I am a: Patient What is your living situation today?: I have a steady place to live Within the past 12 months, did the food you bought not last and you didn't have the money to get more?: Never true Within the past 12 months, did you worry whether your food would run out before you got money to buy more?: Never true Do you have trouble paying for medicines?: Yes Do you have trouble getting transportation to medical appointments?: Yes Do you have trouble paying your heating and electricity bill?: No Do you have trouble taking care of your child, family member or friend?: No Do you have trouble with day-to-day activities such as bathing, preparing meals, shopping, managing finances, etc.?: No Are you currently unemployed and looking for a job?: No Are you interested in more education?: No Please select the resources that you would like help with: Transportation Currently or been in a relationship where the following occur: No concerns reported THRIVE Score: 1 STACEY-7 AMB Questionnaire STACEY-7 Date STACEY - 7 assessed: 07/26/23 Source: Developed by Drs. Marty Garrison, Pati Duckworth, Chema Devi and colleagues, with an educational yvonne from [email or web address]. Review of Systems Const Denies chills, Denies fatigue, Denies fever(s), Denies headache(s) and Denies weakness ENT Denies dizziness and Denies headache(s) Card Denies chest pain, Denies lightheadedness, Denies dyspnea and Denies other (Palpitations) Resp Denies cough, Denies dyspnea, Denies wheezing and Denies other ( shortness of breath) Musc Denies numbness and Denies tingling Neuro Denies dizziness, Denies headache(s), Denies numbness, Denies tingling, Denies paresthesias and Denies weakness Psych Denies anxiety and Denies depression Endo Denies fatigue Aller/Immun Denies wheezing Physical exam (Primary Care) Vital Signs: Last Vital Signs Temp 97.4 F 04/05/25 09:45 Pulse 74 04/05/25 09:45 Resp 18 04/05/25 09:45 BP 120/60 04/05/25 09:45 Pulse Ox 96 04/05/25 09:45 Oxygen Delivery Method Room Air 04/05/25 09:45 BMI result Body Mass Index 36.5 Tobacco/Smoking Status: Tobacco use Status Tobacco use date assessed 03/09/25 04/05/25 09:37 Patient Tobacco Use Status Former Tobacco user (quit 2 04/05/25 09:37 months ago) Tobacco use type Cigarette,Cigar 04/05/25 09:37 e-Cigarette/Vaping Use Currently Using 04/05/25 09:37 Thrive Assessment: Date of Thrive Assessment Date Thrive assessed 09/21/24 04/05/25 09:37 Currently or been in a relationship where the following occur: No concerns reported Const General: no acute distress and well developed Nutritional Appearance: well nourished Orientation/consciousness: patient oriented x3 [facility] Head: Yes normocephalic and Yes atraumatic Eyes General: appearance normal, both eyes and all related structures Pupils: Equal, round and reactive pupils present EOM: EOMs intact bilaterally Resp Effort & Inspection: normal respiratory effort Auscultation: clear to auscultation bilaterally Cardio Rate: regular rate Rhythm: regular rhythm Heart sounds: S1 normal heart sound present, S2 normal heart sound present, no gallops, no murmurs and no rubs Neuro General: patient oriented x3 and gait normal Cranial nerves: Yes Equal, round and reactive pupils present Psych Affect: normal affect Coding Level of Care Code Est Pt Level 4 (37653) Diagnoses Cardiomyopathy I42.9 CHF (congestive heart failure) I50.9 Afib I48.91 Elevated blood pressure reading without diagnosis of hypertension R03.0 JENSEN (acute kidney injury) N17.9 Vertigo R42 Hearing loss H91.90 Assessment & Plan Assessment & Plan (1) Cardiomyopathy: Code(s): I42.9 - Cardiomyopathy, unspecified Category: Medical Plan: 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 BNP was greater than 2000 and recent hospital visit and I have ordered a repeat of this. He has gotten his labs drawn today. Results pending Prior syncope and no further syncopal events. Holter monitor did show some nocturnal pauses but not greater than 3 seconds. No need for pacer, per Cardiology Atrial fib is controlling-see below Recommend alcohol abstinence Continue furosemide Continue management on AFib with metoprolol Follow-up with Cardiology as recommended (2) CHF (congestive heart failure): Code(s): I50.9 - Heart failure, unspecified Category: Medical Plan: As above, BNP was greater than 2000 at hospital visit Currently taking furosemide and breathing easily Lungs clear to auscultation BNP pending (3) Afib: Code(s): I48.91 - Unspecified atrial fibrillation Category: Medical Plan: Patient taking metoprolol and Eliquis Rate is well controlled at 74 beats per minute Cardiology does not see a need for pacer at this time Remain abstinent of alcohol Continue metoprolol and Eliquis (4) Elevated blood pressure reading without diagnosis of hypertension: Code(s): R03.0 - Elevated blood-pressure reading, without diagnosis of hypertension Category: Medical Plan: Blood pressure today 120/60 Good control. Continue metoprolol, losartan and spironolactone (5) JENSEN (acute kidney injury): Code(s): N17.9 - Acute kidney failure, unspecified Category: Medical Plan: JENSEN hospital visit and lab work was ordered to repeat renal function labs He did not get these done until this morning. Results are pending. (6) Vertigo: Code(s): R42 - Dizziness and giddiness Category: Medical (7) Hearing loss: Code(s): H91.90 - Unspecified hearing loss, unspecified ear Category: Medical Plan Sudden right-sided hearing loss and vertigo As seen audiology and they recommended referral to ENT [facility]erred to [facility] Orders: Referrals Ear/Nose/Throat Referral H91.90 - Unspecified hearing loss, unspecified ear, R42 - Dizziness and giddiness
[2025-04-05 09:45] VITALS: BP 120/60; PULSE 74; RESP 18; TEMP 36.3; O2SAT 96; BMI 36.5
== END 2025-04-05 10:16 | disposition home or self-care (01) ==
LOC: HO.HMCFM 08:43
PROVIDERS: PCP Family Medicine; Visit Provider Family Medicine
DX: I42.9 Cardiomyopathy, unspecified (principal); I50.9 Heart failure, unspecified; I48.91 Unspecified atrial fibrillation; R03.0 Elevated blood-pressure reading, without diagnosis of hypertension; N17.9 Acute kidney failure, unspecified; R42 Dizziness and giddiness; H91.90 Unspecified hearing loss, unspecified ear

== ENCOUNTER 2025-04-05 08:43 | Outpatient (REF) | payer MEDICARE, SELFPAY ==
[2025-04-05 11:23] LABS: MANUAL DIFF FLAG NO
[2025-04-05 11:35] LABS: Appearance Urine Clear; Glucose Urine UA Negative (Negative); PH 6.5 (5.0-9.0); Specific Gravity - Urine 1.010 (1.005-1.025)
[2025-04-05 11:43] LABS: Hematocrit 41.1 % (42.0-52.0); Hemoglobin 14.0 g/dl (14.0-18.0); Imm Gran Abs Auto 0.03 X10*3/uL (0.00-0.03); Imm Gran Pct Auto 0.4 % (0.0-0.4); Lymphocytes Absolute Auto 3.4 X10*3/uL (1.2-4.9); Mean Corpuscular HGB Conc 34.1 g/dl (31.0-36.0); Mean Corpuscular Hemoglobin 32.3 pg (27.0-33.0); Mean Corpuscular Volume 94.7 fL (80.0-98.0); NRBC Abs Auto 0.000 X10*3/uL (0.0-0.012); NRBC Pct Auto 0.0 /100WBC (0.0-0.2); Platelet Count 328 X10*3/uL (160-400); Red Blood Count 4.34 X10*6/uL (4.60-5.80); White Blood Count 7.6 X10*3/uL (4.8-10.8)
[2025-04-05 11:51] LABS: NT Pro B Type Natriuretic Pept 1498.1 pg/mL (<300)
[2025-04-05 11:57] LABS: Alanine Aminotransferase 33 U/L (0-40); Albumin Level 3.9 g/dL (3.5-5.0); Alkaline Phosphatase 97 U/L (39-117); Anion Gap 12 (12-20); Aspartate Amino Transferase 32 U/L (5-37); Blood Urea Nitrogen 13 mg/dL (9-16); Calcium 9.3 mg/dL (8.4-10.2); Carbon Dioxide 26 mmol/L (22-29); Chloride 106 mmol/L (96-108); Estimated Glomerular Filt Rate > 60; Potassium 3.8 mmol/L (3.3-5.1); Sodium 140 mmol/L (135-145); Total Protein 7.5 g/dL (6.5-8.0)
== END 2025-04-05 08:44 | disposition home or self-care (01) ==
LOC: HO.WFDLDS 08:43
PROVIDERS: PCP Family Medicine; Visit Provider Family Medicine
DX: Z00.00 Encounter for general adult medical examination without abnormal findings (principal); R06.02 Shortness of breath; I50.9 Heart failure, unspecified; I42.9 Cardiomyopathy, unspecified; I48.91 Unspecified atrial fibrillation; R03.0 Elevated blood-pressure reading, without diagnosis of hypertension; N17.9 Acute kidney failure, unspecified; R42 Dizziness and giddiness; H91.91 Unspecified hearing loss, right ear; Z79.01 Long term (current) use of anticoagulants; Z79.899 Other long term (current) drug therapy
CPT/HCPCS: 36415; 80053; 81003; 83880; 84443; 85025; 99212